=== PATIENT | male | born 1975 | race Caucasian/White ===

== ENCOUNTER 2020-04-20 13:16 | Emergency (ER) | payer SELFPAY ==
[~2020-04-20] VITALS: Ht 162.6 cm; Wt 81.6 kg
[2020-04-20 13:22] VITALS: BP 127/84
--- NOTE | 2020-04-20 13:35 | NUR ---
45 YEAR OLD MALE COMPLAINS OF LACERATION TO LEFT HAND, BLEEDING CONTROLLED, SMALL OPENING X YESTERDAY. PT AOX4, BREATHING EVEN AND UNLABORED, SKIN WARM AND DRY. BED IN LOWEST POSITION, LOCKED, BED RAIL UPX1. PMH - DENIES ALLERGIES - NKA
[2020-04-20 13:55] VITALS: BP 127/84
--- NOTE | 2020-04-20 13:55 | NUR ---
Patient discharged with v/s stable. Written and verbal after care instructions about lacerations given and explained. Patient alert, oriented and verbalized understanding of instructions. Ambulatory with steady gait. All questions addressed prior to discharge. ID band removed. Patient advised to follow up with PMD. Rx of motrin given. Patient educated on indication of medication including possible reaction and side effects. Opportunity to ask questions provided and answered.
== END 2020-04-20 13:55 | disposition home or self-care (01) ==
LOC: MED 13:16
DX: S61.432A Puncture wound without foreign body of left hand, initial encounter (principal); X58.XXXA Exposure to other specified factors, initial encounter; Y93.89 Activity, other specified; Y92.89 Other specified places as the place of occurrence of the external cause; Y99.8 Other external cause status
CPT/HCPCS: 90471; 90715; 99283